=== PATIENT | female | born 1945 ===

== ENCOUNTER 2018-10-15 07:27 | Outpatient (CLI) | payer OTHER ==
[~2018-10-15] VITALS: Ht 152.4 cm; Wt 65.8 kg
== END 2018-10-15 07:40 | disposition home or self-care (01) ==
LOC: OFIC 805 07:27
DX: H61.23 Impacted cerumen, bilateral (principal); H72.2X2 Other marginal perforations of tympanic membrane, left ear

== ENCOUNTER 2018-11-26 07:57 | Outpatient (CLI) | payer OTHER ==
[~2018-11-26] VITALS: Ht 152.4 cm; Wt 65.8 kg
== END 2018-11-26 08:15 | disposition home or self-care (01) ==
LOC: OFIC 805 07:57
DX: H72.2X2 Other marginal perforations of tympanic membrane, left ear (principal)

== ENCOUNTER 2019-07-01 07:24 | Outpatient (CLI) | payer OTHER ==
[~2019-07-01] VITALS: Ht 152.4 cm; Wt 65.8 kg
== END 2019-07-01 12:47 | disposition home or self-care (01) ==
LOC: OFIC 805 07:24
DX: H66.93 Otitis media, unspecified, bilateral (principal); H72.2X2 Other marginal perforations of tympanic membrane, left ear; J31.2 Chronic pharyngitis; R49.0 Dysphonia; H61.23 Impacted cerumen, bilateral

== ENCOUNTER 2020-05-01 12:38 | Outpatient (CLI) | payer OTHER | END 2020-05-01 18:37 | disposition home or self-care (01) | LOC: OFIC 805 12:38 | PROVIDERS: ATTEND Otolaryngology | DX: H73.892 Other specified disorders of tympanic membrane, left ear (principal); R49.0 Dysphonia; H61.23 Impacted cerumen, bilateral ==

== ENCOUNTER 2020-05-15 09:38 | Outpatient (CLI) | payer OTHER ==
[~2020-05-15] VITALS: Ht 165.1 cm; Wt 77.1 kg
== END 2020-05-15 16:38 | disposition home or self-care (01) ==
LOC: OFIC 805 09:38
PROVIDERS: ATTEND Otolaryngology
DX: H72.2X2 Other marginal perforations of tympanic membrane, left ear (principal); H66.92 Otitis media, unspecified, left ear; H93.8X2 Other specified disorders of left ear; H61.22 Impacted cerumen, left ear

== ENCOUNTER 2020-05-29 14:29 | Outpatient (CLI) | payer OTHER | END 2020-05-29 15:20 | disposition home or self-care (01) | LOC: OFIC 805 14:29 | PROVIDERS: ATTEND Otolaryngology | DX: H72.2X2 Other marginal perforations of tympanic membrane, left ear (principal); H66.92 Otitis media, unspecified, left ear; H61.22 Impacted cerumen, left ear ==

== ENCOUNTER 2020-06-27 10:58 | Outpatient (CLI) | payer OTHER | END 2020-06-27 12:00 | disposition home or self-care (01) | LOC: OFIC 805 10:58 | PROVIDERS: ATTEND Otolaryngology | DX: H72.2X2 Other marginal perforations of tympanic membrane, left ear (principal); H90.12 Conductive hearing loss, unilateral, left ear, with unrestricted hearing on the contralateral side ==

== ENCOUNTER 2020-10-04 11:54 | Outpatient (CLI) | payer OTHER | END 2020-10-04 17:55 | disposition home or self-care (01) | LOC: OFIC 805 11:54 | PROVIDERS: ATTEND Otolaryngology | DX: L30.8 Other specified dermatitis (principal) ==